=== PATIENT | male | born 1995 | race Caucasian/White ===

== ENCOUNTER 2017-03-07 09:48 | Emergency (ER) | payer SELFPAY ==
[~2017-03-07] VITALS: Ht 185.4 cm; Wt 80.0 kg
[2017-03-07 14:51] VITALS: BP 108/63
== END 2017-03-07 15:22 | disposition home or self-care (01) ==
LOC: ED 11:02
DX: S00.83XA Contusion of other part of head, initial encounter (principal); F10.120 Alcohol abuse with intoxication, uncomplicated; X58.XXXA Exposure to other specified factors, initial encounter; Y93.89 Activity, other specified; Y99.8 Other external cause status; Y92.89 Other specified places as the place of occurrence of the external cause
CPT/HCPCS: 99283